=== PATIENT | male | born 1990 | race African-American/Black ===

== ENCOUNTER 2021-08-14 19:17 | Emergency (ER) | payer OTHER ==
[2021-08-14 20:00] VITALS: BP 113/71; PULSE 58; TEMP 98.1; BMI 27.3
== END 2021-08-14 23:16 | disposition left against medical advice (07) ==
LOC: JER 19:17
DX: R06.02 Shortness of breath (principal)
CPT/HCPCS: 71046-TC-FY; 93005; 93010; 99281-25; C9803; U0003; U0005